=== PATIENT | female | born 1990 | race African-American/Black ===

== ENCOUNTER 2017-06-11 13:42 | Observation (INO) ==
[2017-06-11] MEDS ORDERED: MORPHINE 2 MG/1 ML SYRINGE ONE (15:11)
[2017-06-11] MEDS ORDERED: ONDANSETRON 4 MG/2 ML VIAL ONE (15:11)
[2017-06-11] MEDS ORDERED: ONDANSETRON 4 MG/2 ML VIAL IV STA (15:12)
[2017-06-11] MEDS ORDERED: MORPHINE 2 MG/1 ML SYRINGE IV STA (15:12)
[2017-06-11] MEDS ORDERED: SODIUM CHLORIDE 0.9% 1,000 ML IV STA (15:12)
[2017-06-11 15:28] LABS: Basophils % 0.3 % (0.0-0.8); Eosinophils # 0.1 10*3/uL (0.0-0.87); Eosinophils % 1.5 % (0.00-10.9); Hemoglobin 12.9 GM/DL (12.0-16.0); Immature Granulocytes % 0.2 %; Immature Granulocytes Absolute 0.02 #; Lymphocytes # 3.1 10*3/uL (1.4-4.0); Lymphocytes % 32.8 % (21.3-54.2); Mean Corpuscular HGB Conc 33.1 GM/DL (32-36); Mean Corpuscular Hemoglobin 29 PG (27-34); Mean Corpuscular Volume 86.3 FL (87-102); Mean Platelet Volume 8.7 FL (9.6-12.0); Monocytes # 0.8 10*3/uL (0.11-0.8); Monocytes % 8.6 % (1.7-12.7); Neutrophils # 5.3 10*3/uL (1.4-7.4); Neutrophils % 56.6 % (38.7-73.9); Platelet Count 293 T/CUMM (130-400); Red Blood Count 4.52 MC/CUMM (3.8-5.5); Red Cell Distribution Width 13.2 % (9.3-17.3); White Blood Count 9.3 T/CUMM (4-12)
[2017-06-11 15:49] LABS: Alanine Aminotransferase 60 U/L (13-56); Albumin 3.5 G/DL (3.4-5.0); Alkaline Phosphatase 100 U/L (45-117); Apearance,Urine Slightly Hazy (Clear); Aspartate Amino Transferase 33 U/L (0-37); Bacteria,Urine Occasional /HPF (Few); Bilirubin,Total < 0.39 MG/DL (0.2-1.0); Bilirubin,Urine Negative (Negative); Blood Urea Nitrogen 8 MG/DL (7-18); Blood, Urine Negative (Negative); Glucose 84 MG/DL (74-106); Glucose,Urine (UA) Negative (Negative); Ketones,Urine Negative (Negative); Mucus,Urine Occasional /LPF (Occasional); Nitrite,Urine Negative (Negative); Osmolality,Calculated 273.5 MOS/KG (273-304); Potassium 3.5 MMOL/L (3.5-5.1); Protein,Urine Negative; RBC,Urine 1 /HPF (0-4); Sodium 139 MMOL/L (136-145); Squamous Epithelial Cell,Urine Few /HPF (0-10); Total Protein 8.1 G/DL (6.4-8.3); Urine Color Yellow (Yellow); Urine Specific Gravity 1.011 (1.001-1.035); Urine Urobilinogen < 2.0 EU/DL (0.2-1.0); WBC,Urine 25 /HPF (0-6)
[2017-06-11] MEDS ORDERED: KETOROLAC 30 MG/1 ML VIAL IV STA (16:40)
[2017-06-11] MEDS ORDERED: KETOROLAC 30 MG/1 ML VIAL ONE (16:49)
[2017-06-11] MEDS: LACTATED RINGERS 1,000 ML IV SCH (19:33)
[2017-06-11] MEDS: ONDANSETRON 4 MG/2 ML VIAL IV PRN (20:31)
[2017-06-11] MEDS: NITROFURANTOIN MACRO/MONO 100 MG CAPSULE PO SCH (20:32)
[2017-06-12] MEDS: LACTATED RINGERS 1,000 ML IV SCH ×4 (01:30→21:24)
[2017-06-12] MEDS: ONDANSETRON 4 MG/2 ML VIAL IV PRN ×3 (02:53→21:31)
[2017-06-12] MEDS: ACETAMINOPHEN 325 MG TABLET PO PRN (05:59)
[2017-06-12 08:13] LABS: Basophils % 0.3 % (0.0-0.8); Eosinophils # 0.2 10*3/uL (0.0-0.87); Eosinophils % 2.1 % (0.00-10.9); Hematocrit 36.5 VOL% (35.7-47.0); Hemoglobin 11.8 GM/DL (12.0-16.0); Immature Granulocytes % 0.3 %; Immature Granulocytes Absolute 0.02 #; Lymphocytes # 2.5 10*3/uL (1.4-4.0); Lymphocytes % 34.7 % (21.3-54.2); Mean Corpuscular HGB Conc 32.3 GM/DL (32-36); Mean Corpuscular Hemoglobin 28 PG (27-34); Mean Corpuscular Volume 87.7 FL (87-102); Mean Platelet Volume 8.7 FL (9.6-12.0); Monocytes # 0.7 10*3/uL (0.11-0.8); Monocytes % 9.5 % (1.7-12.7); Neutrophils # 3.9 10*3/uL (1.4-7.4); Neutrophils % 53.1 % (38.7-73.9); Platelet Count 283 T/CUMM (130-400); Red Blood Count 4.16 MC/CUMM (3.8-5.5); Red Cell Distribution Width 13.3 % (9.3-17.3); White Blood Count 7.3 T/CUMM (4-12)
[2017-06-12] MEDS: KETOROLAC 30 MG/1 ML VIAL IV PRN ×2 (09:28→15:43)
[2017-06-12] MEDS: NITROFURANTOIN MACRO/MONO 100 MG CAPSULE PO SCH ×2 (09:29→20:56)
[2017-06-12] MEDS: PANTOPRAZOLE 40 MG TABLET PO SCH (09:29)
[2017-06-12] MEDS: ENOXAPARIN 40 MG/0.4 ML SYRINGE SUBCUT SCH (10:33)
[2017-06-12] MEDS ORDERED: TISSUE ADHESIVE 1 EACH APPLICATOR TOP ONE (19:48)
[2017-06-12] MEDS ORDERED: PROPOFOL 200 MG/20 ML VIAL IV ONE (20:25)
[2017-06-12] MEDS ORDERED: SEVOFLURANE 1 UNIT/15 MINUTE INH ONE (20:25)
[2017-06-12] MEDS ORDERED: HYDROmorphone 2 MG/1 ML VIAL ONE (20:25)
[2017-06-12] MEDS ORDERED: fentaNYL 100 MCG/2 ML VIAL ONE (20:25)
[2017-06-12] MEDS ORDERED: GLYCOPYRROLATE 0.4 MG/2 ML VIAL ONE (20:26)
[2017-06-12] MEDS ORDERED: MIDAZOLAM 2 MG/2 ML VIAL ONE (20:26)
[2017-06-12] MEDS ORDERED: ROCURONIUM 100 MG/10 ML VIAL IV ONE (20:26)
[2017-06-12] MEDS ORDERED: ONDANSETRON 4 MG/2 ML VIAL ONE (20:26)
[2017-06-12] MEDS ORDERED: DEXAMETHASONE 10 MG/1 ML VIAL ONE (20:26)
[2017-06-12] MEDS ORDERED: KETOROLAC 30 MG/1 ML VIAL ONE (20:26)
[2017-06-12] MEDS ORDERED: NEOSTIGMINE 10 MG/10 ML VIAL ONE (20:26)
[2017-06-13] MEDS: LACTATED RINGERS 1,000 ML IV SCH (05:00)
[2017-06-13] MEDS: ONDANSETRON 4 MG/2 ML VIAL IV PRN (06:27)
[2017-06-13] MEDS: KETOROLAC 30 MG/1 ML VIAL IV PRN (06:27)
[2017-06-13] MEDS: NITROFURANTOIN MACRO/MONO 100 MG CAPSULE PO SCH (08:19)
[2017-06-13] MEDS: PANTOPRAZOLE 40 MG TABLET PO SCH (08:19)
[2017-06-13] MEDS: ENOXAPARIN 40 MG/0.4 ML SYRINGE SUBCUT SCH (10:14)
[2017-06-13] MEDS: ACETAMINOPHEN 325 MG TABLET PO PRN (10:17)
[2017-06-13 11:10] VITALS: BP 111/68
== END 2017-06-13 13:11 | disposition home or self-care (01) ==
LOC: N.ED 13:42 → N.EDINP 13:42 → N.3E 17:43
PROVIDERS: ADMIT Surgery; ATTEND Surgery